=== PATIENT | male | born 1980 | race Caucasian/White ===

== ENCOUNTER 2023-12-15 09:09 | Emergency (ER) | payer MEDICAID, SELFPAY ==
[2023-12-15 09:29] VITALS: BP 155/109; PULSE 110; RESP 16; TEMP 37.2; O2SAT 100
--- NOTE | 2023-12-15 09:35 | ED.SKABFB ---
HPI - Skin/Abscess/Foreign Bdy General Chief complaint: Skin/Abscess/Foreign Body Stated complaint: skin issue right leg/leg arm Time Seen by Provider: 12/15/23 09:22 Source: patient Mode of arrival: ambulatory Limitations: no limitations History of Present Illness HPI narrative: Kashif is a 43-year-old male patient presenting to the clinic today with complaints of a possible skin infection to the left elbow and to the right lower calf. Patient reports that he has been picking at the left elbow and his sibling tried to open of the infection to his right lower calf. States that the area has been draining very minimally. History of MRSA in the past. Patient denies any fevers, chills, or body aches. States that he did start feeling bad today which prompted him to come into the clinic. Related Data Allergies Allergy/AdvReac Type Severity Reaction Status Date / Time No Known Drug Allergies Allergy Mild Unverified 01/09/11 18:28 Review of Systems Review of Systems: Pertinent positives per HPI. Patient denies any fever, chills, rash, headache, visual changes, dizziness, cough, runny nose, sore throat, shortness of breath, chest pain, palpitations, nausea, vomiting, diarrhea, constipation, abdominal pain, or any urinary issues. PMFSH Comments At the time of my signature, I reviewed and agree with the nursing past medical, surgical, social, and family history. There is no relevant family history pertinent to the patient complaint. Exam Narrative: General: Well-developed, well nourished, in no apparent distress Head: Normocephalic, atraumatic. Cardio: Regular rate and rhythm, s1 and s2 normal, no murmur appreciated. Resp: Clear to auscultation bilaterally, no rhonchi, rales, wheezing or rubs. Integumentary: [place], warm, and dry, 4 scabbed over sores to the left elbow- largest area of induration to the elbow measuring 1.5 x1cm. Redness, erythema, and tenderness to palpation over the right lower calf with pustular lesion. Induration/redness area measuring 2.5cmx 2cm with minimal fluctuance. Course Course Emergency Course: Portions of this record may have been created with voice recognition software. Level of Care: Express Care Visit Vital Signs Vital signs: Vital Signs Temperature 37.2 C 12/15/23 09:29 Pulse Rate 110 H 12/15/23 09:29 Respiratory Rate 16 12/15/23 09:29 Blood Pressure 155/109 H 12/15/23 09:29 Pulse Oximetry 100 12/15/23 09:29 Oxygen Delivery Room Air 12/15/23 09:29 Temperature 37.2 C 12/15/23 09:29 Pulse Rate 110 H 12/15/23 09:29 Respiratory Rate 16 12/15/23 09:29 Blood Pressure 155/109 H 12/15/23 09:29 Pulse Oximetry 100 12/15/23 09:29 Oxygen Delivery Room Air 12/15/23 09:29 Vital signs reviewed MDM - Skin/Abscess/Foreign Bdy MDM Narrative Medical decision making narrative: At the time of visit patient is resting comfortably on the exam table. Patient appears to be nontoxic. Plan: I suspect patient has abscess and he has history of MRSA. Abscess to the right lower calf is minimally fluctuant and I do not feel as though incision and drainage is appropriate at this time. Will place the patient on Bactrim and have him do warm compresses to open up allow the abscess to drain. Supportive measures were discussed with the patient and they voiced understanding discharge instructions and agrees to treatment plan. Return precautions reviewed Differential Diagnosis Differential diagnosis: Likely abscess of skin or subcutaneous tissue, cellulitis, insect bites and other (Abscess) Discharge Plan Discharge Clinical Impression: Abscess of skin or subcutaneous tissue Qualifiers: Site of cutaneous abscess: extremity Site of cutaneous abscess of extremity: lower extremity Laterality: right Qualified Code(s): L02.415 - Cutaneous abscess of right lower limb Patient Disposition: Home, Self-Care Condition: Stable Instructions: Antibiotic Form, Abscess (ED)
== END 2023-12-15 09:45 | disposition home or self-care (01) ==
PROVIDERS: Emergency Provider Nurse Practitioner Family; PCP Nurse Practitioner Family
DX: L02.415 Cutaneous abscess of right lower limb (principal)
CPT/HCPCS: 99213; G0463

== ENCOUNTER 2023-12-19 07:57 | Observation (INO) | payer MEDICAID, SELFPAY ==
[2023-12-19] VITALS (27 sets, daily range): BP systolic 116–165; BP diastolic 69–102; PULSE 67–90; RESP 15–20; TEMP 36.4–36.8; O2SAT 97–100; BMI 25.8
--- NOTE | ~2023-12-19 | CT_ITS ---
EXAMINATION: CT LE RT w con DATE: 12/19/2023 12:02 INDICATION: Wound at the posterior right lower leg. Assess for abscess versus necrotizing fasciitis. TECHNIQUE: High resolution computed tomography (CT) of the right lower leg was performed with 100 mL Omnipaque-350 intravenous contrast. [id number] begins at the metaphyseal region of the proximal ti vibha and extends distally below the ankle. Additional sagittal and coronal reconstructions were perfor med. Automated exposure control and iterative reconstruction technique were employed. The dose-length product was 605.25 mGy-cm. COMPARISON: None FINDINGS: There is focal soft tissue swelling surrounding a poorly defined region of phlegmonous change measuri ng approximately 2.5 cm caudally by 2 cm medial collateral by 1.5 cm AP thickness at the posterolater al mid right calf. There is thickening and stranding in the surrounding subcutaneous fat with overlyi ng skin thickening consistent with cellulitis. No organized peripheral enhancing wall to suggest absc ess. No evident soft tissue gas to suggest necrotizing fasciitis although this is ultimately a clinic al diagnosis. The underlying musculature appears normal. No radiopaque foreign bodies. Bones are unre markable. Right ankle joint and visualized portion of the right subtalar joint appear normal with no joint effusion. IMPRESSION: 1. Cellulitis surrounding a small region of subcutaneous likely phlegmonous change fat the posterolat eral mid right calf. No radiopaque foreign bodies, organized abscess or evident soft tissue gas to mccloud ggest necrotizing fasciitis although ultimately the latter is a clinical diagnosis. Reviewed, dictated and finalized at location A. IMPRESSION: 1. Cellulitis surrounding a small region of subcutaneous likely phlegmonous marilynn nge fat the posterolateral mid right calf. No radiopaque foreign bodies, organi zed abscess or evident soft tissue gas to suggest necrotizing fasciitis althoug h ultimately the latter is a clinical diagnosis.
--- NOTE | 2023-12-19 08:16 | ED.EXTPRO ---
HPI - Extremity Problem General Chief complaint: Extremity Problem,Nontraumatic Stated complaint: cellulitis to r leg Time Seen by Provider: 12/19/23 08:16 Source: patient History of Present Illness HPI Narrative: 43 YEARS OLD WHITE MALE CAME TO THE EMERGENCY ROOM BY PRIVATE CAR COMPLAINING OF PAIN SWELLING AND REDNESS AT THE BACK OF THE RIGHT LOWER LEG ALSO MULTIPLE BUMPS ON THE LEFT UPPER EXTREMITY. HISTORY OF DRUG USE AND ABUSE, ORALLY, DENIES ANY IV DRUG ABUSE, PATIENT WAS IN THE [facility] FOR 2 MONTHS, THEN WENT REHAB FOR 1 MONTH, IS TELLING ME THAT REMOVED BRACE ON THE RIGHT ANKLE 3 DAYS AGO WHICH COULD BE THE UNDERLYING CAUSE OF HIS TROUBLE. PATIENT REPORTED THAT THE TROUBLE AT THE BACK OF THE RIGHT LOWER LEG STARTED A BUMP AND GRADUALLY GOT WORSE. HE DENIES ANY FEVER, CHILLS, NAUSEA, VOMITING, DIARRHEA, CONSTIPATION. Related Data Allergies Allergy/AdvReac Type Severity Reaction Status Date / Time No Known Drug Allergies Allergy Mild Other Verified 12/19/23 08:38 Review of Systems Review of Systems: All systems reviewed & are unremarkable except as noted in HPI and below Exam Narrative: GENERAL APPEARANCE: WELL-DEVELOPED, WELL-NOURISHED SKIN: NORMAL COLOR MULTIPLE BOILS ON THE LEFT TO UPPER EXTREMITIES RIGHT LOWER EXTREMITY EXAM SHOWED DIFFUSE ERYTHEMA, DIFFUSE TENDERNESS, HEAD: NORMOCEPHALIC, NONTRAUMATIC EYES: CLEAR CONJUNCTIVA ENT: OROPHARYNX NORMAL, EARS NORMAL, NOSE NORMAL NECK: SUPPLE, NONTENDER CHEST AND RESPIRATORY: AIRWAY PATENT, NO RESPIRATORY DISTRESS, NO ACCESSORY MUSCLE USE HEART: REGULAR RATE/RHYTHM ABDOMEN: SOFT, NONTENDER, NO ORGANOMEGALY, QUIET BOWEL SOUNDS VASCULAR: NORMAL PERIPHERAL PULSES, NORMAL CAPILLARY REFILL. MUSCULOSKELETAL: NORMAL RANGE OF MOTION, NONTENDER BACK NEUROLOGIC: ALERT AND ORIENTED ?3, SKETCH MAKER IS NORMAL TESTED, NO GROSS MOTOR DEFICIT Course Vital Signs Vital signs: Vital Signs Temperature 36.7 C 12/19/23 08:00 Pulse Rate 88 12/19/23 08:00 Respiratory Rate 20 12/19/23 08:00 Blood Pressure 165/102 H 12/19/23 08:00 Pulse Oximetry 100 12/19/23 08:00 Oxygen Delivery Room Air 12/19/23 08:00 Temperature 36.7 C 12/19/23 08:00 Pulse Rate 88 12/19/23 08:00 Respiratory Rate 20 12/19/23 08:00 Blood Pressure 165/102 H 07/11/24 08:00 Pulse Oximetry 100 12/19/23 08:00 Oxygen Delivery Room Air 12/19/23 08:00 MDM - Extremity (Nontraumatic) MDM Narrative Medical decision making narrative: DIFFERENTIAL DIAGNOSIS INCLUDE CELLULITIS, ABSCESS, NECROTIZING FASCIITIS BLOOD WORKUP TODAY SHOWED WBC OF 6.5 C-REACTIVE PROTEIN OF 15.6 CT WITH IV CONTRAST OF THE RIGHT LOWER EXTREMITY SHOWED FINDING CONSISTENT WITH CELLULITIS NO EVIDENCE OF ABSCESS FORMATION AT THIS TIME PATIENT RECEIVED IV VANCOMYCIN PRIOR TO ADMISSION TO MEDICAL FLOOR, Differential Diagnosis Differential diagnosis: Likely other ( ABOVE) Medical Records Attestation: I reviewed the patient's medical records. Lab Data 12/19/23 08:34 12/19/23 08:34 Labs: Lab Results 12/19/23 Range/Units 08:34 WBC 6.5 (4.5-10.0) K/mm3 RBC 3.86 L (4.6-6.20) M/mm3 Hgb 12.2 L (14.0-18.0) g/dL Hct 35.9 L (42.0-52.0) % MCV 93.0 (80-100) fl MCH 31.6 (26-34) pg MCHC 34.0 (32-36) g/dl RDW 13.1 (11.5-14.5) % Plt Count 352 (150-375) k/mm3 MPV 9.2 (7.4-10.4) fl Immature Gran % (Auto) 0.3 (0-0.5) % Neut % (Auto) 67.6 (45.5-73.1) % Lymph % (Auto) 15.8 L (18.3-44.2) % [place] % (Auto) 11.2 H (2.6-8.5) % Eos % (Auto) 4.2 (0-4.4) % Baso % (Auto) 0.9 (0.2-1.2) % Lymph # (Auto) 1.03 (0.9-3.2) K/mm3 [place] # (Auto) 0.7 H (0.1-0.6) K/mm3 Eos # (Auto)
[2023-12-19] MEDS: SODIUM CHLORIDE 0.9% IV 1,000 ML 999 ML IV CONT (08:36)
[2023-12-19 08:48] LABS: Basophils Absolute Auto 0.1 K/mm3 (0.0-0.1); Basophils Percent Auto 0.9 % (0.2-1.2); Eosinophils Absolute Auto 0.3 K/mm3 (0-0.3); Eosinophils Percent Auto 4.2 % (0-4.4); Hematocrit 35.9 % (42.0-52.0); Hemoglobin 12.2 g/dL (14.0-18.0); Immature Granulocyte Absolute 0.02 K/mm3 (0.00-0.031); Immature Granulocyte Percent A 0.3 % (0-0.5); Lymphocytes Absolute Auto 1.03 K/mm3 (0.9-3.2); Lymphocytes Percent Auto 15.8 % (18.3-44.2); Mean Corpuscular Hemoglobin 31.6 pg (26-34); Mean Platelet Volume 9.2 fl (7.4-10.4); Monocytes Absolute Auto 0.7 K/mm3 (0.1-0.6); Monocytes Percent Auto 11.2 % (2.6-8.5); Neutrophils Absolute Auto 4.4 K/mm3 (1.3-6.7); Neutrophils Percent Auto 67.6 % (45.5-73.1); Platelet Count Result 352 k/mm3 (150-375); Red Blood Count 3.86 M/mm3 (4.6-6.20); Red Cell Distribution Width 13.1 % (11.5-14.5); White Blood Count 6.5 K/mm3 (4.5-10.0)
[2023-12-19 09:03] LABS: INR 0.9; Prothrombin Time 12.8 Seconds (11.1-14.7)
[2023-12-19 09:05] LABS: Partial Thromboplastin Time 34.1 Seconds (22.3-36.8)
[2023-12-19 09:13] LABS: Alanine Aminotransferase 22 U/L (6-50); Albumin Level 4.4 g/dL (3.5-5.1); Alkaline Phosphatase 71 U/L (38-126); Anion Gap 10 mmol/L (4-12); Aspartate Amino Transferase 25 U/L (17-59); Bilirubin,Total 0.4 mg/dL (0.2-1.3); Blood Urea Nitrogen 22 mg/dL (9-20); Calcium 9.2 mg/dL (8.4-10.2); Carbon Dioxide 21 mmol/L (22-30); Chloride 109 mmol/L (98-107); Estimated CRCL calculation 83 ml/min; Estimated Glomerular Filt Rate > 60; Glucose 83 mg/dL (65-110); Potassium 4.1 mmol/L (3.4-5.0); Sodium 140 mmol/L (137-145)
[2023-12-19 09:38] LABS: CRP 15.6 mg/dL (<1.0)
[2023-12-19] MEDS: VANCOMYCIN 1,500 MG/NS 500 ML 1,500 MG/500 ML BAG 250 MG IVPB ×2 (09:45→21:17)
[2023-12-19] MEDS: ACETAMINOPHEN 500 MG TABLET 1000 MG PO (10:05)
--- NOTE | 2023-12-19 13:12 | PC.NURSE ---
Lunch order called in for patient.
--- NOTE | 2023-12-19 14:54 | PM.IMHP ---
H&P: HPI History of Present Illness Date/Time: 12/19/23 14:54 Chief Complaint: Cellulitis to right leg Narrative: This is a 43-year-old male with a significant past medical history of hypertension, current every day smoker, marijuana abuse, meth abuse who presents to the hospital for evaluation of pain, swelling, and redness to the back of his right lower leg and also rash on the left upper extremity. Patient was recently [facility] about 2 months ago and had an ankle monitor placed. [facility] he went to rehab for about 1 month as he is a history of drug use and abuse. He had the brace removed about 3 days ago and noticed a bump to the back of his right lower leg which progressively worsened over the past 6 days. Patient provided the following history. He states that his symptoms started on the with pain, swelling to lower extremity which progressively gotten worse over the next couple of days. He originally presented to the urgent care on the and was started on Bactrim. He was told if his symptoms did not improve in 4-5 days that he should come to the hospital for further treatment. Patient stated that his symptoms did not improve and the pain became progressively worse causing him to present to the hospital today. Patient denies any fever, chills, nausea, vomiting, diarrhea, abdominal pain, chest pain, shortness a breath. Patient endorses 8/10 pain in right lower extremity. Workup in the hospital includes a CT of the right lower extremity with contrast showed cellulitis. Initial labs showed a normal white blood cell count of 6.5, hemoglobin 12.2, bicarb 21, CRP 15.6. Blood and wound cultures were obtained and are pending. Patient was given 1 L of normal saline, Tylenol, and started on vancomycin while in the ED. Review of Systems Review of Systems: All systems reviewed & are unremarkable except as noted in HPI and below Constitutional: Constitutional: Reports as per HPI and Reports no additional constitutional complaints Eyes: Eyes: Reports as per HPI and Reports no additional eye complaints ENT: Reports system reviewed and no additional complaints, except as documented and Reports as per HPI Cardiovascular: Cardiovascular: Reports as per HPI and Reports no additional cardiovascular complaints Respiratory: Respiratory: Reports as per HPI and Reports no additional respiratory complaints Gastrointestinal: Gastrointestinal: Reports as per HPI and Reports no additional gastrointestinal complaints Genitourinary: Genitourinary: Reports no additional male genitourinary complaints and Reports as per HPI Musculoskeletal: Musculoskeletal: Reports no additional musculoskeletal complaints and Reports as per HPI Integumentary/Breasts: Skin/Breast: Reports system reviewed and no additional complaints, except as docu and Reports as per HPI Neurologic: Reports system reviewed and no additional complaints, except as documented and Reports as per HPI Psychiatric: Psychiatric: Reports no additional psychiatric complaints and Reports as per HPI [facility] Past Medical History Medical History (Updated 12/19/23 @ 16:47 by Jessica Pal APRN) History of drug abuse Hypertension Family History Family History (Updated 12/19/23 @ 16:36 by Jessica Pal APRN) Grandparent CHF (congestive heart failure) Heart disease Sibling CHF (congestive heart failure) Heart disease Mother Hypertension Father Hypertension Social History Social History (Updated 12/19/23 @ 16:35 by Jessica Pal APRN) Social History: Currently lives with sister Works for [employer] There are 2 dogs and 1 cat in the household Smoking packs per day: 1 Smoking cigarettes per day: 20.0 Smoking status: Heavy tobacco smoker Tobacco type: cigarettes Alcohol intake: former Substance use: former Substance use type: former substance user, marijuana, opiates, painkillers and methamphetamine Other substan
[2023-12-19 15:34] LABS: Basophils Percent Auto 0.7 % (0.2-1.2); Eosinophils Absolute Auto 0.3 K/mm3 (0-0.3); Eosinophils Percent Auto 5.3 % (0-4.4); Hematocrit 32.6 % (42.0-52.0); Hemoglobin 10.9 g/dL (14.0-18.0); Immature Granulocyte Absolute 0.01 K/mm3 (0.00-0.031); Immature Granulocyte Percent A 0.2 % (0-0.5); Lymphocytes Absolute Auto 1.16 K/mm3 (0.9-3.2); Lymphocytes Percent Auto 20.4 % (18.3-44.2); Mean Corpuscular HGB Conc 33.4 g/dl (32-36); Mean Corpuscular Hemoglobin 31.6 pg (26-34); Mean Corpuscular Volume 94.5 fl (80-100); Mean Platelet Volume 8.8 fl (7.4-10.4); Monocytes Absolute Auto 0.7 K/mm3 (0.1-0.6); Monocytes Percent Auto 11.9 % (2.6-8.5); Neutrophils Absolute Auto 3.5 K/mm3 (1.3-6.7); Neutrophils Percent Auto 61.5 % (45.5-73.1); Platelet Count Result 304 k/mm3 (150-375); Red Blood Count 3.45 M/mm3 (4.6-6.20); Red Cell Distribution Width 13.2 % (11.5-14.5); White Blood Count 5.7 K/mm3 (4.5-10.0)
--- NOTE | 2023-12-19 15:36 | ADMGEN ---
This patient, Kashif Daniels, was admitted to Medical Room 250-01. Patient/family oriented to hospital policies and general routines including ID bracelet, bed and alarms, visiting hours, pain management, procedures, bathroom and other care routines, personal items, smoking policy, room service/diet, and visiting hours. Information on how to activate the Rapid Response Team has been discussed. Patient/Family are encouraged to report perceived risks to care and to ask questions if they do not understand what they are told or what they should do.
[2023-12-19] MEDS: traMADol HCL (*CRX) 50 MG TABLET PO ×2 (15:48→21:21)
[2023-12-20] VITALS (7 sets, daily range): BP systolic 138–162; BP diastolic 87–89; PULSE 67–98; RESP 16–20; TEMP 36.5–36.7; O2SAT 99–100
[2023-12-20] LABS: Amphetamine Screen Urine Positive (Negative); Barbiturate Screen Urine Negative (Negative); Benzodiazepines Screen Urine Negative (Negative); Cannabinoid Screen Urine Negative (Negative); Cocaine Screen Urine Negative (Negative); Methadone Screen Urine Negative (Negative); Opiate Screen Urine Negative (Negative); Phencyclidine Screen Urine Negative (Negative)
--- NOTE | 2023-12-20 | ECHO_ITS ---
Patient Info Name: Kashif Daniels Age: 43 years : 1980 Gender: Male Ht: 72 in Wt: 190 lbs BSA: 2.10 m2 HR: 98 bpm BP: 144 / 89 mmHg Technical Quality: Good Exam Date: 12/20/2023 7:57 AM Exam Location: Echo Lab Patient Status: Inpatient Admit Date: 12/19/2023 Staff Ordering Physician: Jessica Pal APRN Slip Cover Seamstress: Tin Calvo RDCS Attending Provider: Brittni Kapoor MD Referring Physician: Demarco SWEENEY; Exam Type: CA echo doppler color flow Study Info Indications - Drug abuse Complete two-dimensional, color flow and Doppler transthoracic echocardiogram is performed. Summary 1. Complete two-dimensional, color flow and Doppler transthoracic echocardiogram is performed. 2. Left ventricular chamber dimension is normal. 3. Left ventricular systolic function is normal, estimated at 55-60%. 4. There is mild concentric increased left ventricular wall thickness. 5. The left ventricular diastolic function is normal. 6. E/e' 10 is mildly elevated. 7. There is trace tricuspid valve regurgitation. 8. No pulmonary hypertension, estimated pulmonary arterial systolic pressure is 37 mmHg. 9. Dilated inferior vena cava with >50% collapse upon inspiration consistent with elevated right atrial pressure, 10 mmHg. Left Ventricle E/e' 10 is mildly elevated. Left ventricular chamber dimension is normal. Left ventricular systolic function is normal, estimated at 55-60%. There is mild concentric increased left ventricular wall thickness. The left ventricular diastolic function is normal. Right Ventricle Right ventricular chamber dimension is normal. Right ventricular systolic function is normal. Left Atria Left atrial chamber dimension is normal. Right Atria Right atrial chamber dimension is normal. Aortic Valve The aortic valve is probable trileaflet. There is no aortic valve stenosis. There is no aortic valve regurgitation. Pulmonic Valve There is no pulmonic regurgitation. Mitral Valve There is no mitral valve stenosis. There is no mitral valve regurgitation. Tricuspid Valve There is trace tricuspid valve regurgitation. No pulmonary hypertension, estimated pulmonary arterial systolic pressure is 37 mmHg. Pericardium/Pleural There is no pericardial effusion. Inferior Vena Cava Dilated inferior vena cava with >50% collapse upon inspiration consistent with elevated right atrial pressure, 10 mmHg. Aorta The aortic root size at the sinus of Valsalva is normal. Left Ventricular Outflow Tract Name Value Normal LVOT 2D LVOT Diameter 2.1 cm LVOT Doppler LVOT Peak Gradient 6 mmHg LVOT Mean Gradient 3 mmHg LVOT VTI 25 cm LVOT VTI/AV VTI Ratio 0.7 LVOT Stroke Volume 84 ml LVOT CO 5.2 l/min LVOT CI 2.5 l/min/m2 Pulmonic Valve Name Value Normal PV Doppler
[2023-12-20 05:20] LABS: Basophils Absolute Auto 0.1 K/mm3 (0.0-0.1); Basophils Percent Auto 0.9 % (0.2-1.2); Eosinophils Absolute Auto 0.3 K/mm3 (0-0.3); Eosinophils Percent Auto 5.5 % (0-4.4); Hematocrit 34.6 % (42.0-52.0); Hemoglobin 11.4 g/dL (14.0-18.0); Immature Granulocyte Absolute 0.01 K/mm3 (0.00-0.031); Immature Granulocyte Percent A 0.2 % (0-0.5); Lymphocytes Absolute Auto 1.61 K/mm3 (0.9-3.2); Lymphocytes Percent Auto 30.3 % (18.3-44.2); Mean Corpuscular HGB Conc 32.9 g/dl (32-36); Mean Corpuscular Hemoglobin 31.3 pg (26-34); Mean Corpuscular Volume 95.1 fl (80-100); Mean Platelet Volume 9.1 fl (7.4-10.4); Monocytes Absolute Auto 0.7 K/mm3 (0.1-0.6); Monocytes Percent Auto 12.4 % (2.6-8.5); Neutrophils Absolute Auto 2.7 K/mm3 (1.3-6.7); Neutrophils Percent Auto 50.7 % (45.5-73.1); Platelet Count Result 359 k/mm3 (150-375); Red Blood Count 3.64 M/mm3 (4.6-6.20); Red Cell Distribution Width 13.2 % (11.5-14.5); White Blood Count 5.3 K/mm3 (4.5-10.0)
[2023-12-20 05:31] LABS: Alanine Aminotransferase 21 U/L (6-50); Albumin Level 3.7 g/dL (3.5-5.1); Alkaline Phosphatase 55 U/L (38-126); Anion Gap 7 mmol/L (4-12); Aspartate Amino Transferase 22 U/L (17-59); Bilirubin,Total 0.3 mg/dL (0.2-1.3); Blood Urea Nitrogen 13 mg/dL (9-20); Calcium 8.6 mg/dL (8.4-10.2); Carbon Dioxide 24 mmol/L (22-30); Chloride 109 mmol/L (98-107); Estimated CRCL calculation 100 ml/min; Estimated Glomerular Filt Rate > 60; Glucose 87 mg/dL (65-110); Potassium 4.4 mmol/L (3.4-5.0); Sodium 140 mmol/L (137-145)
[2023-12-20] MEDS: VANCOMYCIN 1,500 MG/NS 500 ML 1,500 MG/500 ML BAG 250 MG IVPB ×2 (10:20→22:30)
[2023-12-20] MEDS: ENOXAPARIN 40 MG/0.4 ML SYRINGE SUB-Q (10:21)
[2023-12-20] MEDS: ACETAMINOPHEN 325 MG TABLET 650 MG PO (12:30)
--- NOTE | 2023-12-20 14:08 | PM.IMPN ---
Progress Note: A&P Assessment and Plan (1) Cellulitis of leg, right: Code(s): L03.115 - Cellulitis of right lower limb Status: Acute Assessment and Plan: 12/19/23: Cellulitis to right lower leg. Open wound to the back of the leg. Continue vancomycin 12/20/23: Continue vancomycin IV Wound culture showing Gram-positive cocci on preliminary read Blood cultures showing no growth on preliminary read (2) Hypertension: Code(s): I10 - Essential (primary) hypertension Status: Acute Assessment and Plan: 12/19/23: Blood pressure ranging 116/89 to 139/74 Patient states he takes lisinopril 20 mg b.i.d. however we will start him on lisinopril 20 mg daily 12/20/23: Blood pressure ranging 138/88 to 144/89 Will increase lisinopril to 20 mg b.i.d. (3) Tobacco abuse: Code(s): Z72.0 - Tobacco use Status: Acute Assessment and Plan: 12/19/23: Nicotine patch ordered 12/20/23: No change to current treatment plan (4) History of drug abuse: Code(s): F19.11 - Other psychoactive substance abuse, in remission Status: Acute Assessment and Plan: 12/19/23: Patient has history of marijuana and methamphetamine use in the past He states he has been clean for the past year We will go ahead and get a urine drug screen and an echocardiogram considering his family history of heart disease 12/20/23: Urine drug screen positive for amphetamines Echocardiogram essentially normal (5) Rash: Code(s): R21 - Rash and other nonspecific skin eruption Status: Acute Assessment and Plan: 12/19/23: Right forearm rash with scabs Patient states that the rash appeared within the last week 12/20/23: No change Time Spent With Patient Time with patient: 25 - 35 minutes Subjective Date/time seen: 12/20/23 14:08 Interval history: Interval history: This is a 43-year-old male with a significant past medical history of hypertension, current every day smoker, marijuana abuse, meth abuse who presents to the hospital for evaluation of pain, swelling, and redness to the back of his right lower leg and also rash on the left upper extremity. Patient was recently released from [facility] about [facility] ago and had an ankle monitor placed. From [facility] he went to rehab for about 1 month as he is a history of drug use and abuse. He had the brace removed about 3 days ago and noticed a bump to the back of his right lower leg which progressively worsened over the past 6 days. Patient provided the following history. He states that his symptoms started on the with pain, swelling to lower extremity which progressively gotten worse over the next couple of days. He originally presented to the urgent care on the and was started on Bactrim. He was told if his symptoms did not improve in 4-5 days that he should come to the hospital for further treatment. Patient stated that his symptoms did not improve and the pain became progressively worse causing him to present to the hospital today. Patient denies any fever, chills, nausea, vomiting, diarrhea, abdominal pain, chest pain, shortness a breath. Patient endorses 8/10 pain in right lower extremity. Workup in the hospital includes a CT of the right lower extremity with contrast showed cellulitis. Initial labs showed a normal white blood cell count of 6.5, hemoglobin 12.2, bicarb 21, CRP 15.6. Blood and wound cultures were obtained and are pending. Patient was given 1 L of normal saline, Tylenol, and started on vancomycin while in the ED. 12/20/23: Echo reviewed. Urine drug screen positive for amphetamines. Patient denies any new complaints today. Review of Systems Review of Systems: All systems reviewed & are unremarkable except as noted in HPI and below Constitutional: Constitutional: Reports as per HPI and Reports no additional constitutional complaints Eyes: Eyes: Reports as per HPI and Reports no additional eye complaints ENT
[2023-12-20 20:50] LABS: Vancomycin Trough 11.3 ug/mL (10.0-20.0)
[2023-12-20] MEDS: traMADol HCL (*CRX) 50 MG TABLET PO (21:22)
[2023-12-21 05:01] VITALS: BP 142/88; PULSE 60; RESP 18; TEMP 36.5; O2SAT 99
[2023-12-21 06:35] LABS: Basophils Absolute Auto 0.1 K/mm3 (0.0-0.1); Basophils Percent Auto 1.3 % (0.2-1.2); Eosinophils Absolute Auto 0.3 K/mm3 (0-0.3); Eosinophils Percent Auto 6.3 % (0-4.4); Hematocrit 35.3 % (42.0-52.0); Hemoglobin 11.4 g/dL (14.0-18.0); Immature Granulocyte Absolute 0.02 K/mm3 (0.00-0.031); Immature Granulocyte Percent A 0.4 % (0-0.5); Lymphocytes Absolute Auto 1.43 K/mm3 (0.9-3.2); Lymphocytes Percent Auto 31.1 % (18.3-44.2); Mean Corpuscular HGB Conc 32.3 g/dl (32-36); Mean Corpuscular Hemoglobin 30.6 pg (26-34); Mean Corpuscular Volume 94.9 fl (80-100); Mean Platelet Volume 9.2 fl (7.4-10.4); Monocytes Absolute Auto 0.5 K/mm3 (0.1-0.6); Monocytes Percent Auto 10.7 % (2.6-8.5); Neutrophils Absolute Auto 2.3 K/mm3 (1.3-6.7); Neutrophils Percent Auto 50.2 % (45.5-73.1); Platelet Count Result 393 k/mm3 (150-375); Red Blood Count 3.72 M/mm3 (4.6-6.20); Red Cell Distribution Width 12.6 % (11.5-14.5); White Blood Count 4.6 K/mm3 (4.5-10.0)
[2023-12-21 06:39] LABS: Alanine Aminotransferase 21 U/L (6-50); Albumin Level 3.6 g/dL (3.5-5.1); Alkaline Phosphatase 54 U/L (38-126); Anion Gap 5 mmol/L (4-12); Aspartate Amino Transferase 20 U/L (17-59); Bilirubin,Total 0.4 mg/dL (0.2-1.3); Blood Urea Nitrogen 12 mg/dL (9-20); Calcium 8.6 mg/dL (8.4-10.2); Carbon Dioxide 28 mmol/L (22-30); Chloride 106 mmol/L (98-107); Estimated CRCL calculation 111 ml/min; Estimated Glomerular Filt Rate > 60; Glucose 91 mg/dL (65-110); Potassium 4.1 mmol/L (3.4-5.0); Sodium 139 mmol/L (137-145)
[2023-12-21] MEDS: ENOXAPARIN 40 MG/0.4 ML SYRINGE SUB-Q (08:08)
[2023-12-21] MEDS: traMADol HCL (*CRX) 50 MG TABLET PO (08:08)
[2023-12-21] MEDS: VANCOMYCIN 1,500 MG/NS 500 ML 1,500 MG/500 ML BAG 250 MG IVPB (10:32)
--- NOTE | 2023-12-25 18:31 | PM.DS ---
DS: Admitting Diagnosis Discharge Date 12/21/23 Admitting Diagnosis cellulitis Hypertension Tobacco abuse History of drug abuse Rash DS: Summary Hospital Course Reason for hospitalization: Cellulitis Hypertension Tobacco abuse History of drug abuse Rash Hospital Course: Interval history: This is a 43-year-old male with a significant past medical history of hypertension, current every day smoker, marijuana abuse, meth abuse who presents to the hospital for evaluation of pain, swelling, and redness to the back of his right lower leg and also rash on the left upper extremity. [facility] months ago and had an ankle monitor placed. From [facility] he went to rehab for about 1 month as he is a history of drug use and abuse. He had the brace removed about 3 days ago and noticed a bump to the back of his right lower leg which progressively worsened over the past 6 days. Patient provided the following history. He states that his symptoms started on the with pain, swelling to lower extremity which progressively gotten worse over the next couple of days. He originally presented to the urgent care on the and was started on Bactrim. He was told if his symptoms did not improve in 4-5 days that he should come to the hospital for further treatment. Patient stated that his symptoms did not improve and the pain became progressively worse causing him to present to the hospital today. Patient denies any fever, chills, nausea, vomiting, diarrhea, abdominal pain, chest pain, shortness a breath. Patient endorses 8/10 pain in right lower extremity. Workup in the hospital includes a CT of the right lower extremity with contrast showed cellulitis. Initial labs showed a normal white blood cell count of 6.5, hemoglobin 12.2, bicarb 21, CRP 15.6. Blood and wound cultures were obtained and are pending. Patient was given 1 L of normal saline, Tylenol, and started on vancomycin while in the ED. wound culture showing MRSA on final read and blood cultures are showing no growth on final read.. Blood culture Patient transitioned to Doxycycline and is stable for discharge. He will need to follow up with PCP in 1 week. Final diagnosis: cellulitis Status at Discharge Cognitive/behavioral status at discharge: Alert oriented x4 Functional status at discharge: independent ambulation Overall status at discharge: patient is progressing back to baseline Time Spent with Patient Time attestation: Total time spent providing and/or coordinating discharge services: Time spent: Greater than 30 minutes DS: Data Data Completed and Pending Completed studies during hospitalization: Lower extremity CT Pending studies at discharge: None Procedures/Treatments: None Discharge Plan Discharge Attending physician on discharge: Brian Anaya Consulting providers: Jessica Pal; Lalitha Thomas; Kashif Thorpe; Andreas Booker Discharging Clinician: Jessica Pal Anticipated Discharge Date/Time: 12/21/23 10:14 Patient Disposition: Home, Self-Care Activity: may shower Diet: as tolerated Discharge Instructions: initial antibiotic as directed even if you are feeling better follow-up with your primary care physician in 1 week avoid bath tubs, hot tubs, swimming in pools or lakes with your open wound on your leg. Wait until this is completely healed and your finished with antibiotics if you experience increased pain, warmth, redness, or pus from your wound and running a fever of 101 or greater you will need to come back for further evaluation Patient Instructions: Antibiotic Form, How to Stop Smoking (GEN), Cigarette Smoking and Your Health (GEN) Stand Alone Forms: General Discharge Information Follow-up/Referrals: ADÁN,HERBERTH SANDS [Primary Care Provider] - 1 Week Discharge Medications: New tramadol 25 mg tablet 25 mg PO Q6H PRN (Reason: pain) Qty: 10 0RF doxycycline hyclate 100 mg capsule
== END 2023-12-21 13:13 | disposition home or self-care (01) ==
LOC: ANHED 13:24 → ANH2MED 15:09
PROVIDERS: Nurse Practitioner Acute Care; Admitting Provider Family Medicine; Emergency Provider Emergency Medicine; PCP Nurse Practitioner Family; Visit Provider Family Medicine
DX: L03.115 Cellulitis of right lower limb (principal); R21 Rash and other nonspecific skin eruption; I10 Essential (primary) hypertension; F17.210 Nicotine dependence, cigarettes, uncomplicated; F15.90 Other stimulant use, unspecified, uncomplicated
CPT/HCPCS: 36415; 73701; 80053; 80202; 80307; 83605; 85025; 85610; 85730; 86140; 87040; 87070; 87181; 87205; 93306; 96361; 96365; 96366; 96372; 96376; 99285; A9270; G0378; J1650; J3370; J7030; Q9967

== ENCOUNTER 2025-01-06 13:03 | Emergency (ER) | payer MEDICAID, SELFPAY ==
--- NOTE | ~2025-01-06 | XR_ITS ---
HISTORY: right elbow swelling COMPARISON: None TECHNIQUE: 3 views of the right elbow were performed FINDINGS: No acute fracture is identified. No elevation of the anterior or posterior fat pads are identified to suggest a supracondylar fracture . Overlying soft tissues are unremarkable, and without radiopaque foreign body. Bone mineralization is age-appropriate. IMPRESSION: No acute fracture or dislocation, as detailed above. Reviewed, dictated and finalized at location A.
[2025-01-06 13:10] VITALS: BP 174/115; PULSE 109; RESP 20; TEMP 36.3; O2SAT 99
--- OUTSIDE RECORDS SUMMARY | 2025-01-06 13:15 | XMS_ITS | Continuity of Care Document ---
Author Organization [facility] Address [id number] [place] [address] [address] [place] [address] Phone Care Team Providers Care Forest Pathology Professor Name Role Phone Juju Langley Unavailable Unavailable Advance Directives Directive Yes / No Effective Date File Name No Information Encounters Encounter Description Practice Location Reason(s) For Visit Diagnoses Date Provider Providers Copied on Encounter [facility], [address], [place], [place], [id number], [place] tel:[phone] [facility] No Information 3 Korin Matute. [address] [facility] , [address], [place], [address], [place]. tel:[phone] Family History Family Member Type Diagnosis Age At Onset No Information Payers Payer name Insurance type Covered constitution party ID Authoriza tion(s) No Information Social History Type Description Quantity Date Captured Comments Sex Male Smoking Status No Information Chief Complaint And Reason For Visit No Information Reason For Referral Reason For Referral No Information History Of Present Illness Encounter Date Complaint History Of Prese nt Illness No Information Functional Status Date Functional Assessmen t No Information Instructions Date Instruction Additional Infor mation No Information Assessments Type Assessment Date No Information Patient Care Teams Name Effective Dates (start - stop) Status Members No Information
--- OUTSIDE RECORDS SUMMARY | 2025-01-06 13:15 | XMS_ITS | Clinical Summary ---
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 0 02/27/2019 Active lisinopril (PRINIVIL,ZESTR [place]) 40 mg tablet 3 02/04/2019 Active meloxicam (MOBIC) 15 mg tablet 6 02/04/2019 Active sildenafil (VIAGRA) 100 mg tablet Take by mouth daily as needed 0 01/21/2019 Active HYDROcodone-katie taminophen (NORCO) 7.5-325 mg per tabletIndicatio ns:Pain Take 1-2 tablets every 4 hours as needed for pain 10 tablet 08/21/2019 Active Active Problems No known active problems Surgical History Surgery Date Site/Laterality Comments CARPAL TUNNEL RELEASE Right Social History Tobacco Use Types Packs/Day Years Used Date Smoking Tobacco: Never Smokeless Tobacco: Never Alcohol Use Standard Drinks/Week Comments Yes 0 (1 standard drink = 0.6 oz pur e alcohol) Personal Safety Answer Date Recorded Getting School Help Needed Not on file 08/23 Sex and Gender Information Value Date Recorded Sex Assigned at Not on file 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 Gender Identity Male 01/26/2019 10:57 AM CDT Sexual Orientation Straight 01/26/2019 10 :57 AM CDT Obstetrics History Last Filed Vital Signs Vital Sign Reading Time Taken Comments Blood Pressure 183/127 09/29/2023 9:39 PM CDT Pulse 103 09/29/2023 9:45 PM CDT Temperature 36.3 C (97.4 F) 01/07/2020 1:54 AM CDT Respiratory Rate 18 09/29/2023 7:45 PM CDT Oxygen Saturation 99% 09/29/2023 9:45 PM CDT Inhaled Oxygen Concentration - - Weight 86.2 kg (190 lb) 09/29/2023 4:30 PM CDT Height 182.9 cm (6') 01/07/2020 1:54 AM CDT Body Mass Index 25.77 01/07/2020 1:54 AM CDT Plan of Treatment Health Maintenance Due Date Last Done Comments Colon Cancer Screening-Colonoscopy 1978 Depression Screening 1978 Hepatitis C Screening 1978 Hepatitis B Screening 1996 Regular Well Visit/Exam 18-64 1996 Pneumococcal vaccine <65 (1 of 2 - PCV) 1997 Influenza Vaccine (#1) 2025 DTaP/Tdap/Td Vaccine (3 - Td or Tdap) 10/17/2025 10/18/2015, 10/18/2015 HPV Vaccines Aged Out No longer eligi ble based on patient's age to complete this topic Insurance [facility]ICE PLUS [facility] Care Teams Inside Phone Sales Relationship Specialty Start Date End Date Unknown, Notinfile PCP - General 09/29/23
--- OUTSIDE RECORDS SUMMARY | 2025-01-06 13:15 | XMS_ITS | Referral Summary ---
Author Organization 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 0 02/27/2019 Active lisinopril (PRINIVIL,ZESTR [...] Active Active Problems No known active problems Social History Tobacco Use Types Packs/Day Years Used Date Smoking Tobacco: Never Smokeless Tobacco: Never Alcohol Use Standard Drinks/Week Comments Yes 0 (1 standard drink = 0.6 oz pur e alcohol) Personal Safety Answer Date Recorded Getting School Help Needed Not on file 08/23 Sex and Gender Information Value Date Recorded Sex Assigned at Not on file 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 Care Teams Metalsmith Helper Relationship Specialty Start Date End Date Unknown, Notinfile PCP - General 09/29/23
--- OUTSIDE RECORDS SUMMARY | 2025-01-06 13:15 | XMS_ITS | Clinical Summary ---
Author Organization [facility] Address [address] [place] [address] Care Team Providers Care Lien Searcher Name Role Phone Eileen Metcalf Primary Care Provider [phone] Allergies No known active allergies Medications meloxicam 15 MG tabletIndications: Primary osteoarthritis involving multiple joints Take 1 tablet (15 mg total) by mouth daily. 90 tablet 6 10/18/19 19 Active ibuprofen 800 MG tablet Take 800 mg by mouth 3 (three) times daily as needed. FOR PAIN 2 10/14/19 19 Active lisinopril 40 MG tabletIndications: Essential hypertension Take 1 tablet (40 mg total) by mouth daily. 90 tablet 3 11/18/19 19 Active sildenafil 100 MG tablet Take 100 mg by mouth daily as needed. 0 01/22/20 19 Active albuterol sulfate HFA (VENTOLIN HFA) 108 (90 Base) MCG/ACT inhalerIndications :Mild intermittent asthma without complication (HHS/HCC) Inhale 2 puffs into the lungs every 6 (six) hours as needed for Wheezing. 1 Inhaler 6 08/31/19 20 Active ALPRAZOLAM 0.25 MG tabletIndications: Anxiety TAKE 1 TABLET BY MOUTH THREE TIMES DAILY NEEDED FOR SLEEP OR ANXIETY. SUPERVISING PRESCRIBER KASIHF CRUZ 90 tablet 01/12/20 20 Active Active Problems Problem Noted Date Diagnosed Date Mild intermittent asthma without complication (H HS/HCC) 11/17/2018 Anxiety 07/26/2016 Hypertension 07/26/2016 Immunizations Immunization Administration Dates Next Due Tdap (Generic) 10/18/2015 Family History Medical History Relation Comments Alzheimers Mother Alcohol/Drug Paternal Grandfather Relation Status Comments Mother Paternal Grandfather Social History Tobacco Use Types Packs/Day Years Used Date Smoking Tobacco: Every Day Cigarettes 1 25 Smokeless Tobacco: Never Alcohol Use Standard Drinks/Week Comments Yes 0 (1 standard drink = 0.6 oz pur e alcohol) AUDIT-C Answer Date Recorded Frequency of Alcohol Consumption 2-4 times a sat10/17/2018 Average Number of Drinks Not on file 019 Frequency of Binge Drinking Not on file 10/08 PHQ-2 Answer Date Recorded PHQ-2 Score 4 10/17/2018 Sex and Gender Information Value Date Recorded Sex Assigned at Not on file Legal Sex Male 7:42 PM CDT Gender Identity Not on file Sexual Orientation Not on file Last Filed Vital Signs Vital Sign Reading Time Taken Comments Blood Pressure 172/94 11/17/2018 4:55 PM CDT Pulse 104 11/17/2018 4:33 PM CDT Temperature - - Respiratory Rate 16 11/17/2018 4:33 PM CDT Oxygen Saturation 99% 11/17/2018 4:33 PM CDT Inhaled Oxygen Concentration - - Weight 95.3 kg (210 lb) 11/17/2018 4:33 PM CDT Height 180.3 cm (5' 11) 11/17/2018 4:33 PM CDT Body Mass Index 29.29 11/17/2018 4:33 PM CDT Plan of Treatment Health Maintenance Due Date Last Done Comments Colorectal Cancer Screening Colonoscopy (10 Years) 1978 Annual Physical 1981 Hepatitis C 1996 Hepatitis B Vaccines (1 of 3 - 19+ 3-dose series) 1997 Pneumococcal Vaccine: Pediat rics (0 to 5 Years) and At-Risk Patients (6 to 49 Years) (1 of 2 - PCV) 1997 COVID-19 Vaccine (2023-2 5 season) 2024 PHQ-2 (Physician [place]) 06/10/2024 DTaP, Tdap and Td Vaccines ( 2 - Td or Tdap) 10/17/2025 10/18/2015 Meningococcal B Vaccine Aged Out No l onger eligible based on patient's age to complete this topic Meningococcal Vaccine Aged Out No zayra asad eligible based on patient's age to complete this topic RSV Immunizations Under 20 Months Aged Out No longer eligible based on patient's age to complete this topic Insurance [facility] Care Teams Lien Searcher Relationship Specialty Start Date End Date Eileen Metcalf FNP [address] [place] [address] [phone] PCP - General Nurse Practitioner Family 10/17/18
--- NOTE | 2025-01-06 13:18 | ED.EXTPRO ---
HPI - Extremity Problem General Chief complaint: Extremity Problem,Nontraumatic Stated complaint: right elbow problems Time Seen by Provider: 01/06/25 13:11 History of Present Illness HPI Narrative: 44-year-old male presents with right elbow pain, redness and swelling that started 2 days ago. Patient bumped into a piece of machinery at work. Patient states he sustained a small abrasion and now his right elbow is swollen and red. Patient states he just does not feel good. Patient denies fevers, nausea vomiting, or any other symptoms. Patient has no history of cellulitis Onset (ago): day(s) (2) Related Data Allergies Allergy/AdvReac Type Severity Reaction Status Date / Time No Known Drug Allergies Allergy Mild Other Verified 12/19/23 08:38 Review of Systems Review of Systems: A 10 system review of systems was completed on the patient and is negative except for what is stated in the HPI. Nursing and ancillary documentation was reviewed. [facility] Past Medical History Medical History Hypertension History of drug abuse Family History Family History Grandparent CHF (congestive heart failure) Heart disease Sibling CHF (congestive heart failure) Heart disease Mother Hypertension Father Hypertension Social History Social History Social History: Currently lives with sister Works for [employer] There are 2 dogs and 1 cat in the household Smoking packs per day: 1 Smoking cigarettes per day: 20.0 Smoking status: Heavy tobacco smoker Tobacco type: cigarettes Alcohol intake: former Substance use: former Substance use type: former substance user, marijuana, opiates, painkillers and methamphetamine Other substance usage details: Patient states he has been clean for the past year Last use: year ago Do You Feel Safe in your Home?: Yes Lack of Transportation: No Lack of Food: Never True Current Housing: I Have Housing Concerned About Future Housing: No Difficulty Paying Gas/Electric Bills: No Difficulty Paying for Meds: No Currently Unemployed: No Education: Associate Degree Difficulty w/ Childcare or Family Care: No Living arrangements: with family Additional living arrangements comments: Sister Occupation/Education: occupation Additional occupation/education comments: Works for [employer] Gender identity (if verbalized by the patient): Male Sexual Orientation (if Verbalized by the Patient): Straight or Heterosexual Spiritual care concerns: No Exam Narrative: GENERAL: Well-appearing, well-nourished, and in no acute distress. HEAD: Normocephalic, atraumatic. EYES: PERRLA and EOMI. ENT: Nares clear, no rhinorrhea or epistaxis. Mucous membranes moist. NECK: Supple. CHEST: Clear to auscultation. No respiratory distress. HEART: Regular rate and rhythm. No murmur heard. Normal peripheral pulses. ABDOMEN: Soft, nontender, nondistended, normal active bowel sounds. EXTREMITIES: Soft tissue swelling to right elbow with redness and tenderness SKIN: Warm, dry, no rash. NEURO: No focal deficits. Alert and oriented x3. PSYCH: Normal mood and affect. Course Course Emergency Course: Order an x-ray and labs to rule out septic joint. Vital Signs Vital signs: Vital Signs Temperature 36.3 C L 01/06/25 13:10 Pulse Rate 109 H 01/06/25 13:10 Respiratory Rate 20 01/06/25 13:10 Blood Pressure 174/115 H 01/06/25 13:10 Pulse Oximetry 99 01/06/25 13:10 Oxygen Delivery Room Air 01/06/25 13:10 Temperature 36.3 C L 01/06/25 13:10 Pulse Rate 109 H 01/06/25 13:10 Respiratory Rate 20 01/06/25 13:10 Blood Pressure 174/115 H 01/06/25 13:10 Pulse Oximetry 99 01/06/25 13:10 Oxygen Delivery Room Air 01/06/25 13:10 MDM - Extremity (Nontraumatic) MDM Narrative Medical decision making narrative: Labs and x-ray are negative for septic joint. patient is requesting something for blood pressure and pain. patient appears to be very anxious in the room. patient states he does not have a pcp. will start on low dose losartan, toradol for pain and abx. patient verbalized an understanding Differential Diagnosis Differential diagnosis: Likely other (cellulitis vs septic joint ) Lab Data 01/06/25 13:36 01/06/25 13:36 Labs: Lab Results 01/06/25 Range/Units 13:36 WBC 7.9 (4.5-10.0) K/mm3 RBC 4.66 (4.6-6.20) M/mm3 Hgb 14.1 (14.0-18.0) g/dL Hct 42.2 (42.0-52.0) % MCV 90.6 (80-100) fl MCH 30.3 (26-34) pg MCHC 33.4 (32-36) g/dl RDW 12.2 (11.5-14.5) % Plt Count 367 (150-375) k/mm3 MPV 8.9 (7.4-10.4) fl Immature Gran % (Auto) 0.4 (0-0.5) % Neut % (Auto) 73.0 (45.5-73.1) % Lymph % (Auto) 14.8 L (18.3-44.2) % Fleming % (Auto) 7.4 (2.6-8.5) % Eos % (Auto) 3.3 (0-4.4) % Baso % (Auto) 1.1 (0.2-1.2) % Lymph # (Auto) 1.16 (0.9-3.2) K/mm3 Fleming # (Auto) 0.6 (0.1-0.6) K/mm3 Eos # (Auto) 0.3 (0-0.3) K/mm3 Baso # (Auto) 0.1 (0.0-0.1) K/mm3 Abs Immat Gran (auto) 0.03 (0.00-0.031) K/mm3 Absolute Neuts (auto) 5.7 (1.3-6.7) K/mm3 Absolute Nucleated RBC 0.000 (0.0-0.012) K/mm3 Nucleated RBC % 0.0 (0.0-0.2) % ESR Pending Sodium 139 (137-145) mmol/L Potassium 5.0 (3.4-5.0) mmol/L Chloride 104 (98-107) mmol/L Carbon Dioxide 27 (22-30) mmol/L Anion Gap 8 (4-12) mmol/L BUN 17 (9-20) mg/dL Creatinine 0.96 (0.7-1.3) mg/dL Estim Creat Clear Calc 93 ml/min Estimated GFR > 60 (59 - ) Glucose 116 H (65-110) mg/dL Lactic Acid 1.4 (0.7-2.0) mmol/L Calcium 9.8 (8.4-10.2) mg/dL Total Bilirubin 0.2 (0.2-1.3) mg/dL AST 29 (17-59) U/L ALT 22 (6-50) U/L Alkaline Phosphatase 62 (38-126) U/L Total Protein 7.6 (6.3-8.2) g/dL Albumin 4.2 (3.5-5.1) g/dL Discharge Plan Discharge Clinical Impression: Cellulitis of right elbow, Hypertension Patient Disposition: Home Condition: Stable Instructions: Antibiotic Form, Cellulitis (ED), Hypertension (ED) Additional Instructions: TAKE MEDICATIONS PRESCRIBED RETURN FOR WORSENING SYMPTOMS FOLLOW-UP WITH PRIMARY CARE DOCTOR REGARDING ELEVATED BLOOD PRESSURE Patient Language: Croatian Prescriptions: New sulfamethoxazole-trimethoprim [Bactrim DS] 800-160 mg tablet 1 tablet PO Q12H Qty: 14 0RF ketorolac 10 mg tablet 10 mg PO Q6H PRN (Reason: pain) Qty: 14 0RF Rx Instructions: maximum total duration of 5 days from all oral, intranasal, or parenteral formulations amlodipine [Norvasc] 5 mg tablet 5 mg PO DAILY Qty: 20 0RF No Action tramadol 25 mg tablet 25 mg PO Q6H PRN (Reason: pain) Qty: 10 0RF doxycycline hyclate 100 mg capsule 100 mg PO DAILY Qty: 14 0RF Follow-up/Referrals: ADÁN,HERBERTH SANDS [Non-Staff] - 1 Week Time of Disposition: 14:08
[2025-01-06 13:47] LABS: Hematocrit 42.2 % (42.0-52.0); Hemoglobin 14.1 g/dL (14.0-18.0); Immature Granulocyte Percent A 0.4 % (0-0.5); Lymphocytes Absolute Auto 1.16 K/mm3 (0.9-3.2); Mean Corpuscular HGB Conc 33.4 g/dl (32-36); Mean Corpuscular Hemoglobin 30.3 pg (26-34); Mean Corpuscular Volume 90.6 fl (80-100); Nucleated Red Blood Cells Absolute Auto 0.000 K/mm3 (0.0-0.012); Nucleated Red Blood Cells Perc 0.0 % (0.0-0.2); Platelet Count Result 367 k/mm3 (150-375); Red Blood Count 4.66 M/mm3 (4.6-6.20); White Blood Count 7.9 K/mm3 (4.5-10.0)
--- OUTSIDE RECORDS SUMMARY | 2025-01-06 13:50 | XMS_ITS | Clinical Summary ---
Author Organization [facility] Address [address] [place] [address] Care Team Providers Care Carbide Tool Die Maker Name Role Phone Eilene Metcalf Primary Care Provider [phone] Allergies No known active allergies Medications meloxicam [...] NEEDED FOR SLEEP OR ANXIETY. SUPERVISING PRESCRIBER KASHIF CRUZ 90 tablet 01/12/20 20 Active Active [...] Vaccine (2023-2 5 season) 2024 PHQ-2 (Physician [place]) 06/10/2024 DTaP, Tdap and Td Vaccines ( [...] patient's age to complete this topic Insurance [facility] Care Teams Carbide Tool Die Maker Relationship Specialty Start Date End Date Eileen Metcalf FNP [address] [place] [address] [phone] PCP - General Nurse Practitioner Family 10/17/18
--- OUTSIDE RECORDS SUMMARY | 2025-01-06 13:50 | XMS_ITS | Clinical Summary ---
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
--- OUTSIDE RECORDS SUMMARY | 2025-01-06 13:50 | XMS_ITS | Referral Summary ---
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
[2025-01-06 13:56] LABS: Alanine Aminotransferase 22 U/L (6-50); Albumin Level 4.2 g/dL (3.5-5.1); Alkaline Phosphatase 62 U/L (38-126); Anion Gap 8 mmol/L (4-12); Aspartate Amino Transferase 29 U/L (17-59); Bilirubin,Total 0.2 mg/dL (0.2-1.3); Blood Urea Nitrogen 17 mg/dL (9-20); Calcium 9.8 mg/dL (8.4-10.2); Carbon Dioxide 27 mmol/L (22-30); Chloride 104 mmol/L (98-107); Estimated CRCL calculation 93 ml/min; Estimated Glomerular Filt Rate > 60; Glucose 116 mg/dL (65-110); Potassium 5.0 mmol/L (3.4-5.0); Sodium 139 mmol/L (137-145); Total Protein 7.6 g/dL (6.3-8.2)
[2025-01-06 14:19] VITALS: BP 162/95; PULSE 93; RESP 18; O2SAT 99
== END 2025-01-06 14:22 | disposition home or self-care (01) ==
PROVIDERS: Emergency Provider Nurse Practitioner Family
DX: L03.113 Cellulitis of right upper limb (principal); I10 Essential (primary) hypertension; F17.210 Nicotine dependence, cigarettes, uncomplicated
CPT/HCPCS: 36415; 73080; 80053; 83605; 85025; 85652; 99283